=== PATIENT | female | born 1970 | race African-American/Black ===

== ENCOUNTER 2021-04-28 11:15 | Emergency (ER) | payer OTHER ==
[2021-04-28 11:57] VITALS: TEMP 98.3; BMI 29.9
[2021-04-28 15:06] LABS: BASO % 1.2 % (0-2.0); EOS % 2.8 % (0-4.5); HEMATOCRIT 37.7 % (32.4-45.2); HEMOGLOBIN 12.8 GM/dL (10.7-15.3); LYMPH % 38.4 % (8-40); MCH 27.3 pg (25.7-33.7); MEAN CELL VOLUME 80.3 fl (80-96); MEAN PLT VOLUME 9.2 fl (7.5-11.1); MONO % 9.5 % (3.8-10.2); NEUT % 48.1 % (42.8-82.8); PLATELET COUNT 267 10^3/uL (134-434); RDW 13.8 % (11.6-15.6); WHITE BLOOD COUNT 5.4 K/mm3 (4.0-10.0)
[2021-04-28 15:27] LABS: CHLORIDE 105 mmol/L (98-107); SODIUM 140 mmol/L (136-145)
[2021-04-28 15:29] LABS: ANION GAP 9 MMOL/L (8-16); BLOOD UREA NITROGEN 10.7 mg/dL (7-18); CALCIUM 9.1 mg/dL (8.5-10.1); CO2 26 mmol/L (21-32); GLUCOSE,RANDOM 79 mg/dL (74-106)
[2021-04-28 15:30] LABS: ALBUMIN 3.9 g/dl (3.4-5.0)
[2021-04-28 15:32] LABS: CREATININE 0.6 mg/dL (0.55-1.3); SGOT/AST 44 U/L (15-37); SGPT/ALT 41 U/L (13-61)
[2021-04-28 15:34] LABS: BILIRUBIN,TOTAL 0.5 mg/dL (0.2-1); TOT PROT 8.4 g/dl (6.4-8.2)
[2021-04-28 15:35] LABS: ALK PHOS 90 U/L (45-117)
[2021-04-28 15:37] LABS: N-TERMINAL BNP 223.4 pg/ml (5-125)
[2021-04-28 16:18] VITALS: BP 128/81; PULSE 76
== END 2021-04-28 16:00 | disposition home or self-care (01) ==
LOC: JER 11:15
DX: R60.9 Edema, unspecified (principal)
CPT/HCPCS: 36415; 71046-TC-FY; 80053; 83880; 84484; 85025; 93005; 93010; 93970-TC; 99285-25

== ENCOUNTER 2024-02-13 11:56 | Emergency (ER) | payer OTHER ==
[2024-02-13 12:20] VITALS: BP 105/56; PULSE 75; RESP 17; TEMP 98.4; BMI 39.0
== END 2024-02-13 13:12 | disposition home or self-care (01) ==
LOC: JERFT 11:56
DX: H53.143 Visual discomfort, bilateral (principal); H10.89 Other conjunctivitis
CPT/HCPCS: 99282-25

== ENCOUNTER 2024-04-24 15:16 | Emergency (ER) | payer OTHER ==
[2024-04-24 15:29] VITALS: BP 141/79; PULSE 91; RESP 18; TEMP 98.2; BMI 41.8
[2024-04-24] MEDS ORDERED: KETOROLAC TROMETHAMINE 30 MG/1 ML VIAL IVPUSH ONE (15:56)
[2024-04-24] MEDS ORDERED: DEXAMETHASONE SOD PHOSPHATE 10 MG/1 ML VIAL IVPUSH ONE (15:56)
[2024-04-24] MEDS ORDERED: KETOROLAC TROMETHAMINE 15 MG/ML VIAL ONE (16:03)
[2024-04-24] MEDS ORDERED: DEXAMETHASONE SOD PHOSPHATE 10 MG/1 ML VIAL ONE (16:03)
[2024-04-24] MEDS: DEXAMETHASONE SOD PHOSPHATE 10 MG/1 ML VIAL IM ONE (17:04)
[2024-04-24] MEDS: KETOROLAC TROMETHAMINE 15 MG/ML VIAL IM ONE (17:04)
[2024-04-24 17:11] LABS: HEMATOCRIT 41.6 % (32.4-45.2); HEMOGLOBIN 13.2 G/dL (10.7-15.3); MCH 25.9 pg (25.7-33.7); MCHC 31.7 g/dl (32.0-36.0); MEAN CELL VOLUME 81.8 fl (80-96); MEAN PLT VOLUME 8.5 fl (7.5-11.1); PLATELET COUNT 343.5 10^3/uL (134-434); RBC 5.09 10^6/uL (3.60-5.2); WHITE BLOOD COUNT 10.1 10^3/uL (4.0-10.8)
[2024-04-24 17:20] LABS: ALBUMIN 3.5 g/dl (3.4-5.0); BILIRUBIN,TOTAL 0.4 mg/dl (0.2-1); CALCIUM 9.4 mg/dl (8.5-10.1); CREATININE 0.6 mg/dl (0.6-1.3)
[2024-04-24 17:31] LABS: PLATELET ESTIMATE ADEQUATE
[2024-04-24] MEDS ORDERED: ACETAMINOPHEN 500 MG TABLET (FP) PO ONE (18:01)
[2024-04-24 21:16] LABS: THROAT:GRP A STREP NOT DETECTED (NOTDETECTED)
== END 2024-04-24 19:26 | disposition home or self-care (01) ==
LOC: FER 15:16
PROC: 3E0233Z Introduction of Anti-inflammatory into Muscle, Percutaneous Approach (ICD-10-PCS; principal; 2024-04-24)
PROC: 3E02329 Introduction of Other Anti-infective into Muscle, Percutaneous Approach (ICD-10-PCS; 2024-04-24)
DX: M25.561 Pain in right knee (principal); M79.10 Myalgia, unspecified site; M25.562 Pain in left knee; M25.571 Pain in right ankle and joints of right foot; M25.572 Pain in left ankle and joints of left foot; M25.531 Pain in right wrist; M25.532 Pain in left wrist; Z20.822 Contact with and (suspected) exposure to COVID-19
CPT/HCPCS: 0241U-QW; 36415; 80053; 85027; 87651; 99284-25; J1100

== ENCOUNTER 2024-05-09 15:32 | Observation (INO) | payer OTHER ==
[2024-05-09 15:43] VITALS: BMI 41.8
[2024-05-09] MEDS ORDERED: methylPREDNISolone NA SUCC 125 MG/2 ML VIAL ONE (17:18)
[2024-05-09] MEDS ORDERED: KETOROLAC TROMETHAMINE 15 MG/ML VIAL ONE (17:18)
[2024-05-09] MEDS: KETOROLAC TROMETHAMINE 15 MG/ML VIAL IVPUSH ONE (18:05)
[2024-05-09] MEDS: methylPREDNISolone NA SUCC 125 MG/2 ML VIAL IVPUSH ONE (18:05)
[2024-05-09 18:25] LABS: BASO % 0.8 % (0-2.0); EOS % 3.8 % (0-4.5); HEMATOCRIT 36.8 % (32.4-45.2); HEMOGLOBIN 12.4 GM/dL (10.7-15.3); LYMPH % 25.2 % (8-40); MCH 26.6 pg (25.7-33.7); MCHC 33.6 g/dl (32.0-36.0); MONO % 12.6 % (3.8-10.2); NEUT % 57.6 % (42.8-82.8); PLATELET COUNT 443 10^3/uL (134-434); RBC 4.66 M/mm3 (3.60-5.2); RDW 14.2 % (11.6-15.6); WHITE BLOOD COUNT 6.7 K/mm3 (4.0-10.0)
[2024-05-09 18:40] LABS: POTASSIUM 4.2 mmol/L (3.5-5.1)
[2024-05-09 18:42] LABS: CALCIUM 9.4 mg/dL (8.5-10.1)
[2024-05-09 18:43] LABS: ALBUMIN 2.8 g/dl (3.4-5.0); BLOOD UREA NITROGEN 7.1 mg/dL (7-18)
[2024-05-09 18:46] LABS: CREATININE 0.5 mg/dL (0.55-1.3)
[2024-05-09 18:48] LABS: BILIRUBIN,TOTAL 0.4 mg/dL (0.2-1); TOT PROT 7.4 g/dl (6.4-8.2)
[2024-05-09 19:03] LABS: PLATELET ESTIMATE SLT INCREASE
[2024-05-09 19:08] LABS: ERYTHROCYTE SEDIMENTATION RATE 94 mm/hr (0-30)
[2024-05-09] MEDS ORDERED: morphine SULFATE 4 MG/ML VIAL ONE (20:19)
[2024-05-10] MEDS ORDERED: methylPREDNISolone NA SUCC 40 MG/1 ML VIAL ONE (01:25)
[2024-05-10] MEDS: methylPREDNISolone NA SUCC 125 MG/2 ML VIAL IVPB SCH ×2 (01:36→04:38)
[2024-05-10] MEDS: ENOXAPARIN NA (PORCINE) 40 MG/0.4 ML DISP.SYRIN SQ SCH (09:38)
[2024-05-10] MEDS: methylPREDNISolone NA SUCC 40 MG/1 ML VIAL IVPB SCH (14:28)
[2024-05-10] MEDS: IBUPROFEN 600 MG TABLET (FP) PO PRN (16:44)
[2024-05-11 09:16] LABS: BASO % 0.7 % (0-2.0); EOS % 0.3 % (0-4.5); HEMATOCRIT 34.3 % (32.4-45.2); HEMOGLOBIN 11.5 GM/dL (10.7-15.3); LYMPH % 19.2 % (8-40); MCH 26.2 pg (25.7-33.7); MCHC 33.4 g/dl (32.0-36.0); MEAN CELL VOLUME 78.5 fl (80-96); MEAN PLT VOLUME 8.2 fl (7.5-11.1); MONO % 6.4 % (3.8-10.2); NEUT % 73.4 % (42.8-82.8); PLATELET COUNT 353 10^3/uL (134-434); RBC 4.37 M/mm3 (3.60-5.2); RDW 14.1 % (11.6-15.6); WHITE BLOOD COUNT 9.8 K/mm3 (4.0-10.0)
[2024-05-11 09:48] LABS: POTASSIUM 3.3 mmol/L (3.5-5.1)
[2024-05-11 09:58] LABS: ALBUMIN 2.7 g/dl (3.4-5.0); CALCIUM 9.3 mg/dL (8.5-10.1)
[2024-05-11 10:02] LABS: CREATININE 0.5 mg/dL (0.55-1.3)
[2024-05-11 10:03] LABS: BILIRUBIN,TOTAL 0.9 mg/dL (0.2-1); TOT PROT 6.9 g/dl (6.4-8.2)
[2024-05-11] MEDS: FAMOTIDINE 10 MG TABLET PO SCH (10:26)
[2024-05-11] MEDS: POTASSIUM CHLORIDE ORAL LIQUID 20 MEQ/15 ML PO ONE (10:46)
[2024-05-12 09:18] LABS: POTASSIUM 4.1 mmol/L (3.5-5.1)
[2024-05-12 09:26] LABS: BLOOD UREA NITROGEN 12.9 mg/dL (7-18); CALCIUM 9.5 mg/dL (8.5-10.1)
[2024-05-12 09:30] LABS: CREATININE 0.5 mg/dL (0.55-1.3)
[2024-05-12] MEDS: predniSONE 20 MG TABLET (UD) PO ONE (09:45)
[2024-05-12 09:59] VITALS: RESP 20
[2024-05-12 14:22] VITALS: BP 117/79; PULSE 87; TEMP 98.4
[2024-05-12] MEDS ORDERED: ATORVASTATIN CA 10 MG TABLET (FP) PO SCH (22:00)
[2024-05-13] MEDS ORDERED: predniSONE 20 MG TABLET (UD) PO SCH (10:00)
== END 2024-05-12 18:42 | disposition home or self-care (01) ==
LOC: JER 15:32 → JERBED 19:59 → INTOOBSV 19:59 → J7W 05-10 02:39
PROVIDERS: ADMIT Internal Medicine; ATTEND Nurse Practitioner
PROC: 3E023GC Introduction of Other Therapeutic Substance into Muscle, Percutaneous Approach (ICD-10-PCS; principal; 2024-05-09)
PROC: 3E0333Z Introduction of Anti-inflammatory into Peripheral Vein, Percutaneous Approach (ICD-10-PCS; 2024-05-09)
PROC: 3E033GC Introduction of Other Therapeutic Substance into Peripheral Vein, Percutaneous Approach (ICD-10-PCS; 2024-05-09)
DX: M05.79 Rheumatoid arthritis with rheumatoid factor of multiple sites without organ or systems involvement (principal); G47.33 Obstructive sleep apnea (adult) (pediatric); E66.9 Obesity, unspecified; Z99.81 Dependence on supplemental oxygen; I10 Essential (primary) hypertension; E78.5 Hyperlipidemia, unspecified; F51.9 Sleep disorder not due to a substance or known physiological condition, unspecified; Z88.8 Allergy status to other drugs, medicaments and biological substances
CPT/HCPCS: 36415; 73110-TC-LT-FY; 73560-TC-RT-FY; 73610-TC-RT-FY; 80048; 80053; 82550; 83735; 85025; 85651; 86038; 86140; 86200; 86431; 93005; 93010; 94660; 96372; 96374; 96375; 96376; 97116-GP; 97162-GP; 99285-25; G0378

== ENCOUNTER 2024-09-11 12:38 | Observation (INO) | payer SELFPAY ==
[2024-09-11] MEDS: methylPREDNISolone ACET (DEPO) 40 MG/1 ML VIAL IM ONE (17:42)
[2024-09-11] MEDS: NAPROXEN 375 MG TABLET PO ONE (19:37)
[2024-09-11 20:44] LABS: BASO % 0.8 % (0-2.0); EOS % 4.8 % (0-4.5); HEMATOCRIT 36.3 % (32.4-45.2); HEMOGLOBIN 11.7 GM/dL (10.7-15.3); LYMPH % 18.9 % (8-40); MCH 25.6 pg (25.7-33.7); MCHC 32.1 g/dl (32.0-36.0); MEAN CELL VOLUME 79.6 fl (80-96); MONO % 8.9 % (3.8-10.2); NEUT % 66.6 % (42.8-82.8); RBC 4.56 M/mm3 (3.60-5.2); RDW 14.3 % (11.6-15.6); WHITE BLOOD COUNT 12.1 K/mm3 (4.0-10.0)
[2024-09-11 21:10] LABS: PLATELET COUNT 346 10^3/uL (134-434)
[2024-09-11 21:11] LABS: MEAN PLT VOLUME 8.9 fl (7.5-11.1); PLATELET ESTIMATE ADEQUATE
[2024-09-11 21:20] LABS: POTASSIUM 3.8 mmol/L (3.5-5.1)
[2024-09-11 21:22] LABS: ALBUMIN 2.9 g/dl (3.4-5.0); BLOOD UREA NITROGEN 9.9 mg/dL (7-18); CALCIUM 9.1 mg/dL (8.5-10.1)
[2024-09-11 21:25] LABS: CREATININE 0.6 mg/dL (0.55-1.3)
[2024-09-11 21:27] LABS: BILIRUBIN,TOTAL 0.4 mg/dL (0.2-1); TOT PROT 7.4 g/dl (6.4-8.2)
[2024-09-11 22:00] LABS: HIV INTERPRETATION NEGATIVE (NEGATIVE)
[2024-09-12 03:00] VITALS: BMI 42.3
[2024-09-12] MEDS ORDERED: IBUPROFEN 600 MG TABLET (FP) PO PRN (03:20)
[2024-09-12] MEDS: FAMOTIDINE 20 MG/50 ML IVPB 20 MG/50 ML MG IVPB SCH (09:05)
[2024-09-12] MEDS: methylPREDNISolone NA SUCC 40 MG/1 ML VIAL IVPUSH SCH (09:05)
[2024-09-12] MEDS: ENOXAPARIN NA (PORCINE) 40 MG/0.4 ML DISP.SYRIN SQ SCH (09:05)
[2024-09-12 11:31] LABS: BASO % 0.9 % (0-2.0); EOS % 3.9 % (0-4.5); HEMATOCRIT 37.6 % (32.4-45.2); HEMOGLOBIN 12.6 GM/dL (10.7-15.3); LYMPH % 14.5 % (8-40); MCH 26.5 pg (25.7-33.7); MCHC 33.5 g/dl (32.0-36.0); MEAN CELL VOLUME 79.2 fl (80-96); MEAN PLT VOLUME 8.8 fl (7.5-11.1); MONO % 4.4 % (3.8-10.2); NEUT % 76.3 % (42.8-82.8); PLATELET COUNT 370 10^3/uL (134-434); RBC 4.75 M/mm3 (3.60-5.2); RDW 14.2 % (11.6-15.6); WHITE BLOOD COUNT 9.6 K/mm3 (4.0-10.0)
[2024-09-12 11:56] LABS: POTASSIUM 3.8 mmol/L (3.5-5.1)
[2024-09-12 12:01] LABS: ALBUMIN 2.8 g/dl (3.4-5.0); BLOOD UREA NITROGEN 11.8 mg/dL (7-18); CALCIUM 9.1 mg/dL (8.5-10.1); MAGNESIUM 1.6 mg/dL (1.8-2.4)
[2024-09-12 12:04] LABS: CREATININE 0.7 mg/dL (0.55-1.3); PHOSPHOROUS 2.4 mg/dL (2.5-4.9)
[2024-09-12 12:05] LABS: BILIRUBIN,TOTAL 0.4 mg/dL (0.2-1)
[2024-09-12 12:06] LABS: TOT PROT 7.5 g/dl (6.4-8.2)
[2024-09-12 12:14] LABS: ERYTHROCYTE SEDIMENTATION RATE 97 mm/hr (0-30)
[2024-09-12] MEDS: ATORVASTATIN CA 10 MG TABLET (FP) PO SCH (21:43)
[2024-09-13 23:03] VITALS: RESP 18
[2024-09-14 08:31] LABS: BASO % 0.1 % (0-2.0); HEMATOCRIT 34.7 % (32.4-45.2); HEMOGLOBIN 11.5 GM/dL (10.7-15.3); LYMPH % 9.6 % (8-40); MEAN CELL VOLUME 78.8 fl (80-96); MEAN PLT VOLUME 8.6 fl (7.5-11.1); MONO % 3.5 % (3.8-10.2); NEUT % 86.8 % (42.8-82.8); PLATELET COUNT 389 10^3/uL (134-434); RBC 4.41 M/mm3 (3.60-5.2); RDW 13.7 % (11.6-15.6); WHITE BLOOD COUNT 16.8 K/mm3 (4.0-10.0)
[2024-09-14 09:49] LABS: BILIRUBIN,TOTAL 0.2 mg/dL (0.2-1)
[2024-09-14 09:53] LABS: TOT PROT 6.8 g/dl (6.4-8.2)
[2024-09-14 10:00] LABS: ALBUMIN 2.6 g/dl (3.4-5.0)
[2024-09-14 10:03] LABS: BLOOD UREA NITROGEN 14.8 mg/dL (7-18)
[2024-09-14 10:04] LABS: CALCIUM 8.9 mg/dL (8.5-10.1)
[2024-09-14 10:05] LABS: CREATININE 0.6 mg/dL (0.55-1.3)
[2024-09-14] MEDS: predniSONE 20 MG TABLET (UD) PO SCH (11:32)
[2024-09-14 17:26] VITALS: PULSE 79
[2024-09-14 17:28] VITALS: BP 133/81; TEMP 98.4
== END 2024-09-14 21:01 | disposition home or self-care (01) ==
LOC: JER 12:38 → JERBED 20:44 → J7W 09-12 00:30
PROVIDERS: ADMIT Internal Medicine; ATTEND Nurse Practitioner Family
CPT/HCPCS: 36415; 73110-TC-LT-FY; 73110-TC-RT-FY; 73130-TC-LT-FY; 73130-TC-RT-FY; 73562-TC-LT-FY; 73562-TC-RT-FY; 80053; 83735; 84100; 85025; 85651; 86140; 86803; 87389; 93005; 93010; 97116-GP; 97162-GP; 99285-25; G0378